=== PATIENT | female | born 1940 | race Caucasian/White ===

== ENCOUNTER → 2016-06-22 | Outpatient (CLI) | payer MEDICARE, BC | END | disposition home or self-care (01) | LOC: PCVCIMAG 08:27 | PROVIDERS: ATTEND Internal Medicine Cardiovascular Disease | DX: I48.92 Unspecified atrial flutter (principal); I10 Essential (primary) hypertension; E78.00 Pure hypercholesterolemia, unspecified; J44.9 Chronic obstructive pulmonary disease, unspecified | CPT/HCPCS: 93005; 93306; G0463 ==

== ENCOUNTER → 2018-08-27 | Outpatient (CLI) | payer MEDICARE, BC ==
--- NOTE | 2018-08-27 11:19 | PCVCIMAG ---
APPROVED REPORT Study performed: 08/27/2018 09:58:18 EXAM: Comprehensive 2D, Doppler, and color-flow Echocardiogram Patient Location: Echo lab Status: routine BSA: 1.76 HR: 74 bpmBP: 140/70 mmHg Rhythm: Atrial Fibrillation Other Information Study Quality: Technically Difficult Risk Factors: Cardiac Risk Factors: HTN, Hyperlipidemia Indications Atrial Fibrillation COPD, Atrial flutter 2D Dimensions IVSd: 7.24 (7-11mm)LVOT Diam: 17.47 (18-24mm) LVDd: 37.45 mm PWd: 10.02 (7-11mm) LVDs: 32.45 (25-40mm) Left Atrium: 53.90 (27-40mm) Aortic Root: 23.52 mm LV Single Plane 4CH: 42.92 % LV Single Plane 2CH: 67.06 % Biplane EF: 55.7 % Volumes Left Atrial Volume (Systole) Single Plane 4CH: 93.85 mLSingle Plane 2CH: 79.65 mL LA ESV Index: 50.00 mL/m2 Aortic Valve AoV Peak Tesfaye.: 2.38 m/s AO Peak Gr.: 22.74 mmHgLVOT Max P.43 mmHg AO Mean Gr.: 12.17 mmHgLVOT Mean P.60 mmHg AO V2 Mean: 1.67 m/sLVOT Max V: 1.09 m/s AO V2 VTI: 53.04 cmLVOT Mean V: 0.75 m/s CHE (VTI): 1.22 [id number] V1 VTI: 27.05 cm CHE Vmax: 1.10 cm2 SV (LVOT): 64.81 mL Mitral Valve E/A Ratio: 1.0 MV Decel. Time: 579.91 ms MV E Max Tesfaye.: 1.81 m/s MV A Tesfaye.: 1.84 m/s Pulmonary Valve PV Peak Gr.: 2.82 mmHg Tricuspid Valve TR Peak Tesfaye.: 3.78 m/s TR Peak Gr.: 64.93 mmHg Left Ventricle The left ventricle is normal size. There is normal LV segmental wall motion. There is normal left ventricular wall thickness. Left ventricular systolic function is normal. The left ventricular ejection fraction is within the normal range. LVEF is 55%. This study is not technically sufficient to allow evaluation of the LV diastolic function due to atrial fibrillation. Right Ventricle Right ventricle is mildly dilated. The right ventricular systolic function is normal. Atria Left atrium is mildly dilated. Right atrium is moderately dilated. Aortic Valve Aortic valve leaflets are moderately thickened. No aortic regurgitation is present. Mild to moderate aortic stenosis. Peak gradient is 23mmHg. Mean gradient is 12mmHg. Mitral Valve There is mitral annular calcification. Mitral valve leaflets are thickened. There is no mitral valve regurgitation noted. No evidence of mitral valve stenosis. Tricuspid Valve The tricuspid valve is normal in structure. Mild tricuspid regurgitation. Pulmonary artery pressure is 68mmhg. Pulmonic Valve The pulmonary valve is normal in structure. There is no pulmonic valvular regurgitation. Great Vessels The aortic root is normal in size. IVC is normal in size and collapses >50% with inspiration. Pericardium There is no pericardial effusion. <Conclusion> The left ventricle is normal size. There is normal left ventricular wall thickness. Left ventricular systolic function is normal. Right ventricle is mildly dilated. The right ventricular systolic function is normal. Left atrium is mildly dilated. Aortic valve leaflets are moderately thickened. Mild to moderate aortic stenosis. There is mitral annular calcification. Mitral valve leaflets are thickened. Mild tricuspid regurgitation. Pulmonary artery pressure is 68mmhg.
== END | disposition home or self-care (01) ==
LOC: PCVCIMAG 09:47
PROVIDERS: ATTEND Internal Medicine Cardiovascular Disease
DX: I08.3 Combined rheumatic disorders of mitral, aortic and tricuspid valves (principal); I48.91 Unspecified atrial fibrillation; I48.92 Unspecified atrial flutter; I13.0 Hypertensive heart and chronic kidney disease with heart failure and stage 1 through stage 4 chronic kidney disease, or unspecified chronic kidney disease; I50.32 Chronic diastolic (congestive) heart failure; N18.3 Chronic kidney disease, stage 3 (moderate); R60.9 Edema, unspecified; J44.9 Chronic obstructive pulmonary disease, unspecified; E78.00 Pure hypercholesterolemia, unspecified; Z87.891 Personal history of nicotine dependence
CPT/HCPCS: 93005; 93306; G0463